=== PATIENT | male | born 1990 | race Caucasian/White ===

== ENCOUNTER 2017-05-01 23:33 | Emergency (ER) | payer OTHER ==
[2017-05-02 00:37] VITALS: BP 128/87
[2017-05-02 01:20] LABS: ABS Basophils 0 10^3/ul (0-0.2); ABS Eosinophils 0.1 10^3/ul (0-0.6); ABS Lymphocytes 1.9 10^3/ul (1.0-4.8); ABS Monocytes 0.6 10^3/ul (0-0.8); ABS Neutrophils 3.2 10^3/ul (1.5-7.7); ABS Nucleated RBC 0 10^3/ul; Eosinophil % 1.3 % (0-6); Hematocrit 45 % (42-52); Hemoglobin 15.4 g/dl (14.0-18.0); Lymphocyte % 33.1 % (25-47); Mean Corpuscular HGB Conc 35 g/dl (31-36); Mean Corpuscular Hemoglobin 32 pg (27-31); Mean Corpuscular Volume 91 fL (80-94); Mean Platelet Volume 8 um3 (7.4-10.4); Nucleated Red Blood Cells % 0.2; Platelet Count 204 10^3/ul (150-450); Red Blood Count 4.87 10^6/ul (4.0-5.4); Red Cell Distribution Width 13 % (10.5-15); White Blood Count 5.8 10^3/ul (3.5-10.8)
[2017-05-02 01:35] LABS: EGFR Non-African American 74.8 (>60)
--- NOTE | 2017-05-02 01:36 | ED ---
Throat Pain/Nasal Congestion - HPI Summary HPI Summary: Patient is an otherwise healthy 26-year-old male who presents to the ED with complaint of sore throat, fevers and chills times one day. He denies any sweats. He states he has been feeling "off". He denies any other symptoms including congestion, cough, chest pain, blurry or double vision. Denies headache. He has not taken any medication for the pain. He states he left work to come here for a strep test and blood work as he has strep often. He did not take his temperature, just felt "feverish." - History of Current Complaint Chief Complaint: EDThroatPain Time Seen by Provider: 05/02/17 00:52 Hx Obtained From: Patient Onset/Duration: Sudden Onset Severity: Moderate - Epiglottits Risk Factors Epiglottis Risk Factors: Negative - Allergies/Home Medications Allergies/Adverse Reactions: Allergies Allergy/AdvReac Type Severity Reaction Status Date / Time No Known Allergies Allergy Verified 07/19/15 15:09 PMH/Surg Hx/FS Hx/Imm Hx Previously Healthy: Yes - Immunization History Hx Pertussis Vaccination: No Immunizations Up to Date: Unable to Obtain/Confirm Infectious Disease History: No Infectious Disease History: Denies: Traveled Outside the [place] in Last 30 Days - Family History Known Family History: Negative: Cardiac Disease, Hypertension Family History: no cardiovascular issues reported in family lineage - Social History Occupation: Employed Full-time Lives: With Family Alcohol Use: Occasionally Hx Substance Use: No Substance Use Type: Reports: Marijuana Substance Use Comment - Amount & Last Used: OCCASIONALLY Hx Tobacco Use: No Smoking Status (MU): Never Smoked Tobacco Review of Systems Constitutional: Negative Negative: Fever, Chills, Fatigue Eyes: Negative Positive: Sore Throat Cardiovascular: Negative Negative: Palpitations, Chest Pain Respiratory: Negative Negative: Abdominal Pain, Vomiting Skin: Negative All Other Systems Reviewed And Are Negative: Yes Physical Exam Triage Information Reviewed: Yes Vital Signs On Initial Exam: Initial Vitals Temp Pulse Resp BP Pulse Ox 98.5 F 70 18 133/96 99 05/01/17 23:37 05/01/17 23:37 05/01/17 23:37 05/01/17 23:37 05/01/17 23:37 Vital Signs Reviewed: Yes Appearance: Positive: Well-Appearing, Well-Nourished Skin: Positive: Warm, Skin Color Reflects Adequate Perfusion Head/Face: Positive: Normal Head/Face Inspection Eyes: Positive: EOMI, ECTOR, Conjunctiva Clear ENT: Positive: Pharyngeal erythema Neck: Positive: Supple, No Lymphadenopathy Respiratory/Lung Sounds: Positive: Clear to Auscultation, Breath Sounds Present Cardiovascular: Positive: Normal, Pulses are Symmetrical in both Upper and Lower Extremities Musculoskeletal: Positive: Normal, Strength/ROM Intact Neurological: Positive: Speech Normal Psychiatric: Positive: Normal, Affect/Mood Appropriate AVPU Assessment: Alert Diagnostics - Vital Signs Vital Signs Temp Pulse Resp BP Pulse Ox 05/02/17 00:32 98.4 F 64 16 128/87 98 05/01/17 23:37 98.5 F 70 18 133/96 99 - Laboratory Lab Results: Lab Results 05/02/17 05/02/17 05/02/17 Range/Units 00:40 00:40 01:11 WBC 5.8 (3.5-10.8) 10^3/ul RBC 4.87 (4.0-5.4) 10^6/ul Hgb 15.4 (14.0-18.0) g/dl Hct 45 (42-52) % MCV 91 (80-94) fL MCH 32 H (27-31) pg MCHC 35 (31-36) g/dl RDW 13 (10.5-15) % Plt Count 204 (150-450) 10^3/ul MPV 8 (7.4-10.4) um3 Neut % (Auto) 55.1 (38-83) % Lymph % (Auto) 33.1 (25-47) % [place] % (Auto) 9.9 H (0-7) % Eos % (Auto) 1.3 (0-6) % Baso % (Auto) 0.6 (0-2) % Absolute Neuts (auto) 3.2 (1.5-7.7) 10^3/ul Absolute Lymphs (auto) 1.9 (1.0-4.8) 10^3/ul Absolute Monos (auto) 0.6 (0-0.8) 10^3/ul Absolute Eos (auto) 0.1 (0-0.6) 10^3/ul Absolute Basos (auto) 0 (0-0.2) 10^3/ul Absolute Nucleated RBC 0 10^3/ul Nucleated RBC % 0.2 Influenza A (Rapid) Negative (Negative) Influenza B (Rapid) Negative (Negative) Group A Strep Rapid Negative (Negative) Result Diagrams: 05/02/17 01:11 Lab Statement: Any lab studies that have been ordered have been reviewed, and results considered in the medical decision making process. EENT Course/Dx - Course Course Of Treatment: During the course of treatment, the patient's evaluated for sore throat. Labs obtained and are unremarkable. Strep and flu are negative. He is given a note for work. He is encouraged cepacol tabs and Tylenol. He is afebrile during the course of treatment. - Diagnoses Provider Diagnoses: Pharyngitis Discharge - Discharge Plan Condition: Stable Disposition: HOME Patient Education Materials: Pharyngitis (ED) Forms: *Work Release Referrals: London Mcfadden MD [Primary Care Provider] - Additional Instructions: Cepacol tabs [id number] Tylenol 650 mg 3 times daily for pain
== END 2017-05-02 01:42 | disposition home or self-care (01) ==
LOC: ED 23:33
DX: J02.9 Acute pharyngitis, unspecified (principal)
CPT/HCPCS: 36415; 80053; 82150; 83605; 85025; 86140; 87502; 87651; 99282

== ENCOUNTER 2017-08-24 07:26 | Emergency (ER) | payer OTHER ==
[2017-08-24 08:41] VITALS: BP 130/88
--- NOTE | 2017-08-24 09:24 | ED ---
Abdominal Pain/Male - HPI Summary HPI Summary: Patient is a 27-year-old male presenting to the ED with a 2 year history of left sided upper abdominal pain as well as epigastric pain with associated nausea and vomiting. He endorses worsening symptoms after eating or drinking acidic substances. He states he was seen by a physician a few years ago and was diagnosed with a gastritis, but was never placed on any medication. He was referred to a GI specialist, but never followed up. He states symptoms usually subside after 12 hours, however this episode has lasted approximately 2 days. Worsening symptoms after he vomits as he feels an acidic feeling. He does not smoke, however when drinking year or drinking soda drinks, he feels worsening pain. Denies any fevers, sweats, chills. Denies any travel history. Has been otherwise well - History of Current Complaint Chief Complaint: EDAbdPain Stated Complaint: ABD PAIN,VOMITING Time Seen by Provider: 08/24/17 07:43 Hx Obtained From: Patient Onset/Duration: Gradual Onset Timing: Constant Severity Initially: Moderate Severity Currently: Moderate Pain Intensity: 1 Pain Scale Used: 0-10 Numeric Location: Discrete At: LUQ, Epigastric Radiates: No Character: Burning Aggravating Factor(s): Food Alleviating Factor(s): Antacids Associated Signs And Symptoms: Positive: Vomiting - Risk Factors Testicular Torsion: Negative Cardiac Risk Factors: Negative - Allergies/Home Medications Allergies/Adverse Reactions: Allergies Allergy/AdvReac Type Severity Reaction Status Date / Time No Known Allergies Allergy Verified 08/24/17 07:27 PMH/Surg Hx/FS Hx/Imm Hx Previously Healthy: Yes - Immunization History Hx Pertussis Vaccination: No Immunizations Up to Date: Unable to Obtain/Confirm Infectious Disease History: No Infectious Disease History: Denies: Traveled Outside the [place] in Last 30 Days - Family History Known Family History: Negative: Cardiac Disease, Hypertension Family History: no cardiovascular issues reported in family lineage - Social History Occupation: Employed Full-time Lives: With Family Alcohol Use: Occasionally Hx Substance Use: No Substance Use Type: Reports: Marijuana Substance Use Comment - Amount & Last Used: daily Hx Tobacco Use: No Smoking Status (MU): Former Smoker Review of Systems Constitutional: Negative Negative: Fever, Chills, Fatigue, Skin Diaphoresis Negative: Epistaxis, Dental Pain Negative: Palpitations, Chest Pain Negative: Shortness Of Breath, Cough Positive: Abdominal Pain, Vomiting, Nausea. Negative: Diarrhea Genitourinary: Negative Positive: no symptoms reported, see HPI Musculoskeletal: Negative Neurological: Negative All Other Systems Reviewed And Are Negative: Yes Physical Exam Triage Information Reviewed: Yes Vital Signs On Initial Exam: Initial Vitals Temp Pulse Resp BP Pulse Ox 97.9 F 72 16 122/85 97 08/24/17 07:27 08/24/17 07:27 08/24/17 07:27 08/24/17 07:27 08/24/17 07:27 Vital Signs Reviewed: Yes Appearance: Positive: Well-Appearing, Well-Nourished Skin: Positive: Warm, Skin Color Reflects Adequate Perfusion Head/Face: Positive: Temporal Artery Tenderness Eyes: Positive: EOMI, ECTOR, Conjunctiva Clear Neck: Positive: Supple, No Lymphadenopathy Respiratory/Lung Sounds: Positive: Clear to Auscultation, Breath Sounds Present Cardiovascular: Positive: RRR, Pulses are Symmetrical in both Upper and Lower Extremities Abdomen Description: Positive: Other: - tednerness to the epigastric region Bowel Sounds: Positive: Present Musculoskeletal: Positive: Strength/ROM Intact Neurological: Positive: Sensory/Motor Intact, Alert, Oriented to Person Place, Time, Speech Normal Psychiatric: Positive: Normal, Affect/Mood Appropriate AVPU Assessment: Alert Diagnostics - Vital Signs Vital Signs Temp Pulse Resp BP Pulse Ox 08/24/17 08:41 97.6 F 56 18 130/88 96 08/24/17 08:15 58 130/88 96 08/24/17 08:00 58 96 08/24/17 07:45 60 118/72 96 08/24/17 07:27 97.9 F 72 16 122/85 97 - Laboratory Lab Statement: Any lab studies that have been ordered have been reviewed, and results considered in the medical decision making process. Abdominal Pain Fem Course/Dx - Course Course Of Treatment: During the course of treatment, the patient is evaluated for possible gastritis. Symptoms are in the epigastric and left upper quadrant region, worse with eating acidic foods and drink. Worse after drinking beer. Patient is a nonsmoker. On physical examination, there is pain with deep palpation to the epigastric and left upper quadrant region. Continues to eat and drink okay. Denies any urinary symptoms. Normal bowel movements, last bowel movement yesterday. Denies any symptoms of diarrhea or constipation. 2 episodes of vomiting over the past 2 days after eating acidic meals. I've discussed with the patient the need for a PPI controlled medication and have given him omeprazole as a prescription. For breakthrough gastritis pain, he will take Maalox. He is also given Zofran for any nausea associated with this. He is given a GI follow-up and given a bland/low acid diet. He is okay with this plan and discharged. - Diagnoses Provider Diagnoses: Gastritis Discharge - Sign-Out/Discharge Documenting (check all that apply): Discharge/Admit/Transfer - Discharge Plan Condition: Stable Disposition: HOME Prescriptions: Al Hydrox/Mg Hydrox/Simet LIQ* [Maalox Plus*] 30 ml PO Q4H PRN #1 udc PRN Reason: Pain Omeprazole 40 mg PO DAILY #30 capsule. Ondansetron ODT TAB* [Zofran 4 MG Odt TAB*] 4 mg PO Q6H PRN #12 tab.odt MDD 4 PRN Reason: Nausea Patient Education Materials: Omeprazole (By mouth), Antacid, Calcium Containing (By mouth), Diet for Stomach Ulcers and Gastritis (ED) Forms: *Work Release Referrals: No Primary Care Phys,NOPCP [Primary Care Provider] - Jeramy Fregoso MD [Medical Doctor] - Additional Instructions: Omeprazole 1 tablet daily Zofran up to every 6 hours as needed for nausea Maalox plus for any breakthrough gastric pain, this may be obtained over-the- counter as well Please follow-up with a GI specialist Follow a low acid diet as discussed Avoid all soda, carbonated drinks, tomatoes, strawberries, lemon in line and other high acidic fruits Wilbar[place] diet - Billing Disposition and Condition Condition: STABLE Disposition: Home
== END 2017-08-24 08:41 | disposition home or self-care (01) ==
LOC: ED 07:26
DX: K29.70 Gastritis, unspecified, without bleeding (principal); Z87.891 Personal history of nicotine dependence
CPT/HCPCS: 99282

== ENCOUNTER 2017-11-27 17:01 | Emergency (ER) | payer OTHER ==
[2017-11-27] MEDS ORDERED: NS 0.9% 1000 ML* 1,000 ML IV ONE (19:48)
--- NOTE | 2017-11-27 20:05 | ED ---
Abdominal Pain/Male - HPI Summary HPI Summary: This patient is a 27 year old M presenting to [facility] accompanied by his and kid with a chief complaint of bladder incontinence during sleep almost every day since 1 month ago. He denies drinking any more or less fluid, sleep-talking (per his ), and PMHx psychiatric problems. He notes that he urinates right before he goes to sleep, and when he wakes up the bed has been wet and he feels an intense urgency. He also endorses intermittent RLQ abd pain, nausea, and fatigue. He denies emesis and diarrhea. He notes that his son recently showed similar GI sx. He denies SHx appendectomy. - History of Current Complaint Chief Complaint: EDAbdPain Stated Complaint: ABD PAIN/DROWSY Time Seen by Provider: 11/27/17 19:40 Hx Obtained From: Patient Onset/Duration: Gradual Onset, Lasting Days, Still Present Timing: Intermittent, Lasting Minutes Severity Initially: Moderate - during brief episodes Severity Currently: Mild Pain Intensity: 2 Pain Scale Used: 0-10 Numeric Location: Discrete At: RLQ Radiates: No Aggravating Factor(s): Nothing Alleviating Factor(s): Spontaneous Resolution Associated Signs And Symptoms: Positive: Nausea, Other - fatigue, bladder incontinence in sleep every day for past month, urgency. Negative: Fever, Vomiting, Diarrhea - Allergies/Home Medications Allergies/Adverse Reactions: Allergies Allergy/AdvReac Type Severity Reaction Status Date / Time No Known Allergies Allergy Verified 08/24/17 07:27 PMH/Surg Hx/FS Hx/Imm Hx Cardiovascular History: Denies: Hx Pacemaker/ICD Respiratory History: Denies: Hx Lung Cancer GI History: Denies: Hx Ileostomy History: Denies: Hx Dialysis Musculoskeletal History: Denies: Hx Osteoporosis Sensory History: Denies: Hx Legally Blind, Hx Deafness Opthamlomology History: Denies: Hx Legally Blind EENT History: Denies: Hx Deafness Neurological History: Denies: Hx Dementia Infectious Disease History: No Infectious Disease History: Denies: Traveled Outside the [place] in Last 30 Days - Family History Known Family History: Negative: Cardiac Disease, Hypertension Family History: no cardiovascular issues reported in family lineage - Social History Lives: With Family Alcohol Use: Occasionally Hx Substance Use: No Substance Use Type: Reports: Marijuana Substance Use Comment - Amount & Last Used: daily Hx Tobacco Use: No Smoking Status (MU): Former Smoker Review of Systems Positive: Fatigue. Negative: Fever Positive: Abdominal Pain - RLQ, Nausea. Negative: Vomiting, Diarrhea Positive: incontinence - while sleeping, almost every day for past month, urgency Positive: Other - bladder incontinence while sleeping, almost every day for past month All Other Systems Reviewed And Are Negative: Yes Physical Exam - Summary Physical Exam Summary: Appearance: Well appearing, no pain distress Skin: warm, dry, reflects adequate perfusion Head/face: normal Eyes: EOMI, ECTOR ENT: normal Neck: supple, non-tender Respiratory: CTA, breath sounds present Cardiovascular: RRR, pulses symmetrical Abdomen: tenderness in RLQ, soft Bowel: present Musculoskeletal: normal, strength/ROM intact Neuro: normal, sensory motor intact, A&Ox3 Triage Information Reviewed: Yes Vital Signs On Initial Exam: Initial Vitals Temp Pulse Resp BP Pulse Ox 97.7 F 64 16 119/81 99 11/27/17 17:28 11/27/17 17:28 11/27/17 17:28 11/27/17 17:28 11/27/17 17:28 Vital Signs Reviewed: Yes Diagnostics - Vital Signs Vital Signs Temp Pulse Resp BP Pulse Ox 11/27/17 19:40 70 118/90 100 11/27/17 19:39 72 95 11/27/17 17:28 97.7 F 64 16 119/81 99 - Laboratory Result Diagrams: 11/27/17 20:01 11/27/17 20:01 Lab Statement: Any lab studies that have been ordered have been reviewed, and results considered in the medical decision making process. Abdominal Pain Fem Course/Dx - Course Course Of Treatment: A 27-year-old M presents to the ED with a CC of bladder incontinence while sleeping for over a month. (+) RLQ abd pain onset 2 days ago , nausea, fatigue, bladder incontinence, urgency upon waking. (-) change in fluid intake, vomiting, diarrhea, and sleeptalking (per ). almost every night he has been urinating in his sleep despite using the bathroom before bed. When he wakes up, the bed is wet and he has severe urgency. His son was sick with abd sx a few days ago. In the ED course, pt was given nl saline. - Diagnoses Differential Diagnosis/HQI/PQRI: Appendicitis, Diverticulitis, Pancreatitis, Renal Colic Provider Diagnoses: Abdominal pain Discharge - Sign-Out/Discharge Documenting (check all that apply): Sign-Out Patient Signing out patient TO: Marilyn Oneal - CT A/P - Discharge Plan Referrals: No Primary Care Phys,NOPCP [Primary Care Provider] - - Attestation Statements Document Initiated by Scribe: Yes Documenting Scribe: Idris Manning Provider For Whom Scribe is Documenting (Include Credential): Dr. Tam Vasquez MD Scribe Attestation: Idris Cruz scribed for Dr. Tam Vasquez MD on 11/27/17 at 2137. Scribe Documentation Reviewed: Yes Provider Attestation: The documentation as recorded by the Idris coreas accurately reflects the service I personally performed and the decisions made by me, Dr. Tam Vasquez MD
[2017-11-27 20:14] LABS: ABS Basophils 0 10^3/ul (0-0.2); ABS Eosinophils 0 10^3/ul (0-0.6); ABS Lymphocytes 1.7 10^3/ul (1.0-4.8); ABS Monocytes 0.4 10^3/ul (0-0.8); ABS Neutrophils 3.8 10^3/ul (1.5-7.7); ABS Nucleated RBC 0 10^3/ul; Eosinophil % 0.8 % (0-6); Hematocrit 48 % (42-52); Hemoglobin 16.5 g/dl (14.0-18.0); Lymphocyte % 28.4 % (25-47); Mean Corpuscular HGB Conc 35 g/dl (31-36); Mean Corpuscular Hemoglobin 32 pg (27-31); Mean Corpuscular Volume 92 fL (80-94); Mean Platelet Volume 8.3 um3 (7.4-10.4); Nucleated Red Blood Cells % 0.1; Platelet Count 222 10^3/ul (150-450); Red Blood Count 5.19 10^6/ul (4.00-5.40); Red Cell Distribution Width 13 % (10.5-15)
[2017-11-27 20:22] LABS: INR 0.89 (0.77-1.02)
[2017-11-27 20:29] LABS: EGFR Non-African American 76.5 (>60)
[2017-11-27] MEDS ORDERED: Iohexol 300* (CONTRAST) 10 ML SDV IV ONE (20:49)
--- NOTE | 2017-11-27 21:50 | ED ---
Progress - Progress Note Progress Note: This patient is a 27 year old M presenting to [facility] accompanied by his and kid with a chief complaint of bladder incontinence during sleep almost every day since 1 month ago. Patient was signed out by Dr. Vasquez to Dr. Oneal during a shift change, pending a CT Abdomen/Pelvis. Course/Dx - Course Course Of Treatment: This patient is a 27 year old M presenting to [facility] accompanied by his and kid with a chief complaint of bladder incontinence during sleep almost every day since 1 month ago. Patient was signed out by Dr. Vasquez to Dr. Oneal during a shift change, pending a CT Abdomen/Pelvis. CT Abd/ Pelvis 22:37 showed: 1. The appendix is unremarkable. 2. No other acute CT pathology. Patient will be discharged with a dx of abdominal pain. Patient also has had nocturnal enuresis for the last 2.5 weeks. We will give him a urologist for follow-up. - Diagnoses Provider Diagnoses: Abdominal pain Discharge - Sign-Out/Discharge Documenting (check all that apply): Patient Departure - D/C, Receiving Sign-Out Receiving patient FROM: Tam Vasquez - Pending CT abdomen/pelvis - Discharge Plan Condition: Stable Disposition: HOME Patient Education Materials: Abdominal Pain (ED) Forms: *School Release Referrals: No Primary Care Phys,NOPCP [Primary Care Provider] - (Follow up with [facility] in 1-3 days.) Franc Calhoun MD [Medical Doctor] - Additional Instructions: RETURN TO THE EMERGENCY DEPARTMENT FOR CHANGING OR WORSENING SYMPTOMS. FOLLOW UP WITH PCP IN 1-2 DAYS. - Attestation Statements Document Initiated by Scribe: Yes Documenting Scribe: Joshua Sawant Provider For Whom Scribe is Documenting (Include Credential): Estefany Oneal MD Scribe Attestation: Joshua Cruz, scribed for Estefany Oneal MD on 11/27/17 at 2323. Diagnostics - Vital Signs Vital Signs Temp Pulse Resp BP Pulse Ox 11/27/17 22:39 53 118/87 97 11/27/17 22:09 59 129/82 100 11/27/17 21:39 49 130/72 99 11/27/17 21:09 64 117/80 99 11/27/17 20:40 60 112/72 97 09/27/18 20:10 67 121/76 97 11/27/17 19:40 70 118/90 100 11/27/17 19:39 72 95 11/27/17 17:28 97.7 F 64 16 119/81 99 - Laboratory Lab Results: Lab Results 11/27/17 11/27/17 11/27/17 Range/Units 20:00 20:01 20:01 WBC 6.0 (3.5-10.8) 10^3/ul RBC 5.19 (4.00-5.40) 10^6/ul Hgb 16.5 (14.0-18.0) g/dl Hct 48 (42-52) % MCV 92 (80-94) fL MCH 32 H (27-31) pg MCHC 35 (31-36) g/dl RDW 13 (10.5-15) % Plt Count 222 (150-450) 10^3/ul MPV 8.3 (7.4-10.4) um3 Neut % (Auto) 63.2 (38-83) % Lymph % (Auto) 28.4 (25-47) % [place] % (Auto) 7.1 H (0-7) % Eos % (Auto) 0.8 (0-6) % Baso % (Auto) 0.5 (0-2) % Absolute Neuts (auto) 3.8 (1.5-7.7) 10^3/ul Absolute Lymphs (auto) 1.7 (1.0-4.8) 10^3/ul Absolute Monos (auto) 0.4 (0-0.8) 10^3/ul Absolute Eos (auto) 0 (0-0.6) 10^3/ul Absolute Basos (auto) 0 (0-0.2) 10^3/ul Absolute Nucleated RBC 0 10^3/ul Nucleated RBC % 0.1 INR (Anticoag Therapy) 0.89 (0.77-1.02) APTT 35.5 (26.0-36.3) seconds Sodium (135-145) mmol/L Potassium (3.5-5.0) mmol/L Chloride (101-111) mmol/L Carbon Dioxide (22-32) mmol/L Anion Gap (2-11) mmol/L BUN (6-24) mg/dL Creatinine (0.67-1.17) mg/dL Est GFR ( Amer) (>60) Est GFR (Non-Af Amer) (>60) BUN/Creatinine Ratio (8-20) Glucose (70-100) mg/dL Lactic Acid (0.5-2.0) mmol/L Calcium (8.6-10.3) mg/dL Total Bilirubin (0.2-1.0) mg/dL AST (13-39) U/L ALT (7-52) U/L Alkaline Phosphatase (34-104) U/L Total Protein (6.4-8.9) g/dL Albumin (3.2-5.2) g/dL Globulin (2-4) g/dL Albumin/Globulin Ratio (1-3) Lipase (11.0-82.0) U/L Urine Color Colorless Urine Appearance Clear Urine pH 6.0 (5-9) Ur Specific [place] 1.005 L (1.010-1.030) Urine Protein Negative (Negative) Urine Ketones Negative (Negative) Urine Blood Negative (Negative) Urine Nitrate Negative (Negative) Urine Bilirubin Negative (Negative) Urine Urobilinogen Negative (Negative) Ur Leukocyte Esterase Negative (Negative) Urine Glucose Negative (Negative) 11/27/17 11/27/17 Range/Units 20:01 20:01 WBC (3.5-10.8) 10^3/ul RBC (4.00-5.40) 10^6/ul Hgb (14.0-18.0) g/dl Hct (42-52) % MCV (80-94) fL MCH (27-31) pg MCHC (31-36) g/dl RDW (10.5-15) % Plt Count (150-450) 10^3/ul MPV (7.4-10.4) um3 Neut % (Auto) (38-83) % Lymph % (Auto) (25-47) % [place] % (Auto) (0-7) % Eos % (Auto) (0-6) % Baso % (Auto) (0-2) % Absolute Neuts (auto) (1.5-7.7) 10^3/ul Absolute Lymphs (auto) (1.0-4.8) 10^3/ul Absolute Monos (auto) (0-0.8) 10^3/ul Absolute Eos (auto) (0-0.6) 10^3/ul Absolute Basos (auto) (0-0.2) 10^3/ul Absolute Nucleated RBC 10^3/ul Nucleated RBC % INR (Anticoag Therapy) (0.77-1.02) APTT (26.0-36.3) seconds Sodium 138 (135-145) mmol/L Potassium 4.0 (3.5-5.0) mmol/L Chloride 106 (101-111) mmol/L Carbon Dioxide 27 (22-32) mmol/L Anion Gap 5 (2-11) mmol/L BUN 13 (6-24) mg/dL Creatinine 1.14 (0.67-1.17) mg/dL Est GFR ( Amer) 92.6 (>60) Est GFR (Non-Af Amer) 76.5 (>60) BUN/Creatinine Ratio 11.4 (8-20) Glucose 108 H (70-100) mg/dL Lactic Acid 0.6 (0.5-2.0) mmol/L Calcium 9.5 (8.6-10.3) mg/dL Total Bilirubin 0.40 (0.2-1.0) mg/dL AST 25 (13-39) U/L ALT 24 (7-52) U/L Alkaline Phosphatase 50 (34-104) U/L Total Protein 7.5 (6.4-8.9) g/dL Albumin 4.6 (3.2-5.2) g/dL Globulin 2.9 (2-4) g/dL Albumin/Globulin Ratio 1.6 (1-3) Lipase 22 (11.0-82.0) U/L Urine Color Urine Appearance Urine pH (5-9) Ur Specific [place] (1.010-1.030) Urine Protein (Negative) Urine Ketones (Negative) Urine Blood (Negative) Urine Nitrate (Negative) Urine Bilirubin (Negative) Urine Urobilinogen (Negative) Ur Leukocyte Esterase (Negative) Urine Glucose (Negative) Result Diagrams: 11/27/17 20:01 11/27/17 20:01 Lab Statement: Any lab studies that have been ordered have been reviewed, and results considered in the medical decision making process. - CT Abdomen/Pelvis CT CT Interpretation Completed By: Radiologist - 22:37. 1. The appendix is unremarkable. 2. No other acute CT pathology. ED Physician has reviewed this imaging report.
--- NOTE | 2017-11-27 22:38 | RAD ---
EXAM: CT Abdomen and Pelvis With Intravenous Contrast CLINICAL HISTORY: 27 years old, male; Pain; Abdominal pain; Localized; Right lower quadrant (rlq); Additional info: Rt lower quad tend R/O appendicitis TECHNIQUE: Axial computed tomography images of the abdomen and pelvis with intravenous contrast. All CT scans at this facility use at least one of these dose optimization techniques: automated exposure control; mA and/or kV adjustment per patient size (includes targeted exams where dose is matched to clinical indication); or iterative reconstruction. Coronal and sagittal reformatted images were created and reviewed. CONTRAST: 148 mL of OMNIPAQUE 300 administered intravenously. COMPARISON: No relevant prior studies available. FINDINGS: Lung bases: There is mild bibasilar atelectatic change or scarring. ABDOMEN: Liver: There may be a small focus of focal fat the liver adjacent to the falciform ligament. Gallbladder and bile ducts: Unremarkable. No calcified stones. No ductal dilation. Pancreas: Unremarkable. No mass. No ductal dilation. Spleen: Unremarkable. No splenomegaly. Adrenals: Unremarkable. No mass. Kidneys and ureters: Unremarkable. No solid mass. No hydronephrosis. Stomach and bowel: Unremarkable. No obstruction. No mucosal thickening. PELVIS: Appendix: The appendix is unremarkable. The appendix is seen best on axial image 66 of series 2. Bladder: Unremarkable. No mass. Reproductive: Unremarkable as visualized. ABDOMEN and PELVIS: Intraperitoneal space: Unremarkable. No free air. No significant fluid collection. Bones/joints: No acute fracture. No dislocation. Soft tissues: Unremarkable. Vasculature: Unremarkable. No abdominal aortic aneurysm. Lymph nodes: Unremarkable. No enlarged lymph nodes. IMPRESSION: 1. The appendix is unremarkable. 2. No other acute CT pathology.
[2017-11-27 23:07] LABS: Urine Appearance Clear; Urine Blood Negative (Negative); Urine Color Colorless; Urine Ketones Negative (Negative); Urine Protein Negative (Negative); Urine Specific Gravity 1.005 (1.010-1.030); Urine Urobilinogen Negative (Negative)
[2017-11-27 23:43] VITALS: BP 122/76
== END 2017-11-27 23:38 | disposition home or self-care (01) ==
LOC: ED 17:01
DX: R10.31 Right lower quadrant pain (principal); R11.0 Nausea; R53.83 Other fatigue
CPT/HCPCS: 36415; 74177; 80053; 81003; 83605; 83690; 85025; 85610; 85730; 96360; 99283; Q9967